=== PATIENT | female | born 1970 ===

== ENCOUNTER 2017-09-05 18:38 | Emergency (ER) | payer OTHER ==
[2017-09-05] MEDS ORDERED: Sodium Chloride 0.9% 1,000 ML IV ONE (19:21)
[2017-09-05] MEDS ORDERED: Sucralfate 1 gm/10 ml Oral Susp UD PO STA (19:22)
--- NOTE | 2017-09-05 19:23 | C.PDOC ---
History Of Present Illness 46 year old female presents to the ER with a complaint of left anterior chest pain that began [employer]. Patient has a Hx of epigastric pain 2 days ago that radiated to the anterior chest wall area and belching. Denies fever, chills, nausea, vomiting, or SOB. Time Seen by Provider: 09/05/17 19:20 Chief Complaint (Nursing): Chest Pain History Per: Patient History/Exam Limitations: no limitations Onset/Duration Of Symptoms: Days Current Symptoms Are (Timing): Still Present Associated Symptoms: denies: Nausea, Dyspnea, Diaphoresis, Syncope Modifying Factors: None Exacerbating Factors: None Alleviating Factors: None Recent travel outside of the [place]: No Past Medical History Reviewed: Historical Data, Nursing Documentation, Vital Signs Vital Signs: Last Vital Signs Temp 99.2 F 09/05/17 21:28 Pulse 66 09/05/17 21:28 Resp 18 09/05/17 21:28 BP 111/64 09/05/17 21:28 Pulse Ox 100 09/05/17 21:46 - Medical History PMH: Fibromyalgia Family History: States: Unknown Family Hx - Social History Hx Alcohol Use: No Hx Substance Use: No Review Of Systems Constitutional: Negative for: Fever, Chills Cardiovascular: Negative for: Palpitations Respiratory: Negative for: Cough, Shortness of Breath Gastrointestinal: Positive for: Abdominal Pain. Negative for: Nausea, Vomiting Musculoskeletal: Positive for: Other (Anterior chest wall pain) Physical Exam - Physical Exam Appears: Non-toxic, No Acute Distress Skin: Normal Color, Warm, Dry Head: Atraumatic, Normacephalic Eye(s): bilateral: Normal Inspection Oral Mucosa: Moist Neck: Normal, Supple Chest: Symmetrical, Tenderness (Left lateral area) Cardiovascular: Rhythm Regular Respiratory: Normal Breath Sounds, No Rales, No Rhonchi, No Wheezing Gastrointestinal/Abdominal: Soft, Tenderness (Mild epigastric), No Guarding, No Rebound Back: No CVA Tenderness Neurological/Psych: Oriented x3, Normal Speech ED Course And Treatment - Laboratory Results Result Diagrams: 09/05/17 19:33 09/05/17 19:33 ECG: Interpreted By Me, Viewed By Me ECG Rhythm: Sinus Rhythm ECG Interpretation: Normal, No Acute Changes Interpretation Of ECG: NSR, normal tracings Rate From EC O2 Sat by Pulse Oximetry: 100 (Room air) Pulse Ox Interpretation: Normal - Radiology CXR: Interpreted by Me, Viewed By Me CXR Interpretation: Yes: No Acute Disease, Other (normal chest film). No: Infiltrates Progress Note: EKG, blood work, and CXR ordered. Carafate, protonix, toradol, and IV fluids administered. Disposition Counseled Patient/Family Regarding: Diagnosis - Disposition Referrals: [facility] [Outside] Disposition: HOME/ ROUTINE Disposition Time: 21:48 Condition: STABLE Prescriptions: Naproxen 375 mg PO Q8 #14 tablet Pantoprazole Sodium [Protonix] 40 mg PO DAILY #14 ect Instructions: Chest Pain That Is Not Caused by the Heart (DC), Acid Reflux ( Gastroesophageal Reflux Disease), Adult (DC) Forms: [employer] Connect ([place]ander) - POA Present On Arrival: None - Clinical Impression Clinical Impression: Chest pain, non-cardiac, GERD (gastroesophageal reflux disease) - Scribe Statement The provider has reviewed the documentation as recorded by the Scribe Wilmer Christiansen All medical record entries made by the Scribe were at my direction and personally dictated by me. I have reviewed the chart and agree that the record accurately reflects my personal performance of the history, physical exam, medical decision making, and the department course for this patient. I have also personally directed, reviewed, and agree with the discharge instructions and disposition.
[2017-09-05 19:36] LABS: BASO % 0.7 % (0.0-2.0); EOS % 0.3 % (0.0-4.0); HEMOGLOBIN 12.9 g/dL (11.0-16.0); LYMPH # 0.9 K/uL (1.0-4.3); LYMPH % 15.6 % (20.0-40.0); MEAN CELL VOLUME 90.4 fL (81.0-99.0); MEAN CORPUSCULAR HEMOGLOBIN 30.4 pg (27.0-31.0); MEAN CORPUSCULAR HGB CONC 33.6 g/dL (33.0-37.0); MEAN PLATELET VOLUME 7.8 fL (7.2-11.7); MONO # 0.3 K/uL (0.0-0.8); MONO % 5.1 % (0.0-10.0); NEUT # 4.7 K/uL (1.8-7.0); NEUT % 78.3 % (50.0-75.0); NRBC % 0.1 % (0.0-2.0); RBC 4.23 Mil/uL (3.80-5.20); RED CELL DISTRIBUTION WIDTH 14.2 % (11.5-14.5)
[2017-09-05] MEDS ORDERED: Sucralfate 1 gm/10 ml Oral Susp UD ONE (19:36)
[2017-09-05] MEDS ORDERED: Sodium Chloride 0.9% 1,000 ML ONE (19:36)
[2017-09-05 19:54] LABS: ALB/GLOB RATIO 1.2 (1.0-2.1); ALBUMIN 4.9 g/dL (3.5-5.0); ALT/SGPT 24 U/L (9-52); AST/SGOT 18 U/L (14-36); BLOOD UREA NITROGEN 7 mg/dL (7-17); CALCIUM 10.1 mg/dl (8.6-10.4); GFR AFRICAN-AMERICAN > 60; GFR NON-AFRICAN AMERICAN > 60; LIPASE 31 U/L (23-300)
[2017-09-05 21:30] VITALS: BP 111/64; PULSE 66
[2017-09-05 21:47] VITALS: O2SAT 100
[2017-09-05 22:01] VITALS: RESP 20; TEMP 98.7
--- NOTE | 2017-09-06 07:33 | RAD ---
Date of service: 09/05/2017 HISTORY: chest pain COMPARISON: No prior. TECHNIQUE: Chest PA and lateral FINDINGS: LUNGS: No active pulmonary disease. PLEURA: No significant pleural effusion identified. No pneumothorax apparent. CARDIOVASCULAR: Normal. OSSEOUS STRUCTURES: No significant abnormalities. VISUALIZED UPPER ABDOMEN: Normal. OTHER FINDINGS: None. IMPRESSION: No acute cardiopulmonary disease appreciated.
--- NOTE | 2017-09-06 17:18 | CARD ---
APPROVED REPORT Date of service: 09/05/2017 EKG Measurement Heart [id number] <Conclusion> Normal sinus rhythm Normal ECG
== END 2017-09-05 22:00 | disposition home or self-care (01) ==
LOC: C.ER 18:38
DX: K21.9 Gastro-esophageal reflux disease without esophagitis (principal); R07.89 Other chest pain; M79.7 Fibromyalgia
CPT/HCPCS: 71046; 80053; 83690; 84484; 85025; 85378; 93005; 96374; 99285; C9113; J7030

== ENCOUNTER 2017-09-27 19:18 | Emergency (ER) | payer SELFPAY ==
[2017-09-27 19:27] VITALS: TEMP 98.4
--- NOTE | 2017-09-27 20:36 | C.PDOC ---
History Of Present Illness 46 year old female patient presents to the ER with c/o chest pain. Patient states the pain is constant, not changing with exertion or inspiration and that it radiates to her left arm and scapula. She feels associated symptoms of SOB but states that she is extremely anxious. Patient also reported she had a chest problem a couple of years back and the results was she had arrhythmia but has no ensuing episodes. Patient notes her father recently last week and her son will be deployed in 5 days therefore she is extremely upset. Patient denies abdominal pain, nausea, vomiting, fever, chills and weakness. She has a history of fibromyalgia and is on several different chronic pain medications. Chief Complaint (Nursing): Back Pain History Per: Patient History/Exam Limitations: no limitations Past Medical History Reviewed: Historical Data, Nursing Documentation, Vital Signs Vital Signs: Last Vital Signs Temp 98.4 F 09/27/17 19:23 Pulse 106 H 09/27/17 19:23 Resp 20 09/27/17 19:23 BP 156/87 H 09/27/17 19:23 Pulse Ox 99 09/27/17 20:41 - Medical History PMH: Asthma, Fibromyalgia Family History: States: Unknown Family Hx - Social History Hx Alcohol Use: No Hx Substance Use: No - Immunization History Hx Tetanus Toxoid Vaccination: No Hx Influenza Vaccination: No Hx Pneumococcal Vaccination: No Review Of Systems Constitutional: Negative for: Fever, Chills Gastrointestinal: Negative for: Nausea, Vomiting, Abdominal Pain Neurological: Negative for: Weakness Physical Exam - Physical Exam Appears: Well, Non-toxic, No Acute Distress Skin: Normal Color, Warm, Dry Head: Atraumatic, Normacephalic Eye(s): bilateral: Normal Inspection Ear(s): Bilateral: Normal Oral Mucosa: Moist Neck: Normal ROM, Supple Chest: Symmetrical, No Deformity Cardiovascular: Other (slightly tachycardic; slightly hypertensive) Respiratory: Normal Breath Sounds Gastrointestinal/Abdominal: Soft, No Tenderness Back: No CVA Tenderness Extremity: Normal ROM (x4) Neurological/Psych: Oriented x3, Normal Speech, Normal Motor, Normal Sensation, Normal Reflexes Gait: Steady ED Course And Treatment - Laboratory Results Result Diagrams: 09/27/17 21:11 09/27/17 21:11 Lab Interpretation: No Acute Changes ECG: Interpreted By Me ECG Rhythm: Sinus Rhythm (with sinus arrhythmia) ECG Interpretation: No Acute Changes O2 Sat by Pulse Oximetry: 99 (RA) Pulse Ox Interpretation: Normal - Radiology CXR: Interpreted by Me CXR Interpretation: Yes: No Acute Disease (unchanged from CXR done 09/05/2017) Reevaluation Time: 22:35 Reassessment Condition: Improved Medical Decision Making Medical Decision Making: Impression: chest pain that radiates to left arm and scapula. Plans: -- EKG -- blood work -- UA -- CXR Reassess: Patient is afebrile and is resting comfortably. No neurological deficits. Disposition Counseled Patient/Family Regarding: Studies Performed, Diagnosis, Need For Followup - Disposition Referrals: Gerson Felix MD [Medical Doctor] - Disposition: HOME/ ROUTINE Disposition Time: 22:37 Condition: STABLE Instructions: Chest Pain That Is Not Caused by the Heart (DC) Forms: [employer] (Russian) - Clinical Impression Clinical Impression: Chest pain, non-cardiac - Scribe Statement The provider has reviewed the documentation as recorded by the Scribe Reid Do Provider Attestation: All medical record entries made by the Scribe were at my direction and personally dictated by me. I have reviewed the chart and agree that the record accurately reflects my personal performance of the history, physical exam, medical decision making, and the department course for this patient. I have also personally directed, reviewed, and agree with the discharge instructions and disposition.
[2017-09-27 21:20] LABS: BASO # 0.1 K/uL (0.0-0.2); BASO % 0.4 % (0.0-2.0); EOS % 0.1 % (0.0-4.0); HEMOGLOBIN 11.8 g/dL (11.0-16.0); LYMPH # 1.2 K/uL (1.0-4.3); LYMPH % 10.3 % (20.0-40.0); MEAN CELL VOLUME 89.8 fL (81.0-99.0); MEAN CORPUSCULAR HEMOGLOBIN 29.5 pg (27.0-31.0); MEAN CORPUSCULAR HGB CONC 32.9 g/dL (33.0-37.0); MEAN PLATELET VOLUME 7.7 fL (7.2-11.7); MONO # 0.7 K/uL (0.0-0.8); MONO % 5.6 % (0.0-10.0); NEUT # 9.9 K/uL (1.8-7.0); NEUT % 83.6 % (50.0-75.0); RBC 4.01 Mil/uL (3.80-5.20); RED CELL DISTRIBUTION WIDTH 13.9 % (11.5-14.5); WHITE BLOOD COUNT 11.9 K/uL (4.8-10.8)
[2017-09-27 21:34] LABS: HCG,QUALITATIVE URINE NEGATIVE (NEGATIVE)
[2017-09-27 21:44] LABS: SQUAMOUS EPITHIAL < 1 /hpf (0-5); URINE BACTERIA FEW (<OCC); URINE BILIRUBIN NEGATIVE (NEGATIVE); URINE CLARITY Clear (Clear); URINE COLOR Straw (YELLOW); URINE GLUCOSE (UA) NORMAL (Normal); URINE LEUKOCYTE ESTERASE 1+ Leu/uL (Negative); URINE PROTEIN NEGATIVE (NEGATIVE); URINE UROBILINOGEN NORMAL mg/dL (0.2-1.0)
[2017-09-27 21:45] LABS: URINE BLOOD 1+ (NEGATIVE)
[2017-09-27 22:00] LABS: ALB/GLOB RATIO 1.4 (1.0-2.1); ALT/SGPT 21 U/L (9-52); AST/SGOT 13 U/L (14-36); BLOOD UREA NITROGEN 9 mg/dL (7-17); GFR AFRICAN-AMERICAN > 60; GFR NON-AFRICAN AMERICAN > 60
[2017-09-27 22:40] VITALS: BP 150/75; PULSE 99; RESP 16; O2SAT 100
--- NOTE | 2017-09-28 09:56 | RAD ---
Date of service: 09/27/2017 PROCEDURE: CHEST RADIOGRAPH, 1 VIEW HISTORY: chest pain COMPARISON: 09/05/2017 FINDINGS: LUNGS: No interval consolidation. Small granulomas upper lung zone right greater left. Linear/tubular vessel like opacity left lung base similar-appearing PLEURA: No pneumothorax or pleural fluid seen. CARDIOVASCULAR: Normal. OSSEOUS STRUCTURES: No significant abnormalities. VISUALIZED UPPER ABDOMEN: Normal. OTHER FINDINGS: None. IMPRESSION: No interval pathology noted. Other findings as above.
--- NOTE | 2017-10-01 22:08 | CARD ---
APPROVED REPORT Date of service: 09/27/2017 EKG Measurement Heart [id number] <Conclusion> Poor data quality, interpretation may be adversely affected Normal sinus rhythm with sinus arrhythmia Normal ECG
== END 2017-09-27 22:44 | disposition home or self-care (01) ==
LOC: C.ER 19:18
DX: R07.89 Other chest pain (principal)